=== PATIENT | female | born 1995 | race Caucasian/White ===

== ENCOUNTER 2021-12-18 11:55 | Day surgery (SDC) | payer OTHER ==
[2021-12-18] MEDS ORDERED: hydrALAZINE 20 MG/ML VIAL SLOW IVP PRN (12:40)
[2021-12-18 13:19] LABS: Fetal Membranes Rupture No Membranes Rupture (No Rupture)
[2021-12-18 13:50] VITALS: BMI 24.5
== END 2021-12-18 14:22 | disposition home health service (06) ==
LOC: CSHLD/OP 11:55
PROVIDERS: ATTEND Obstetrics & Gynecology
DX: O99.891 Other specified diseases and conditions complicating pregnancy (principal); N89.8 Other specified noninflammatory disorders of vagina; Z3A.21 21 weeks gestation of pregnancy
CPT/HCPCS: 84112; 87480; 87510; 87660

== ENCOUNTER 2022-04-11 19:52 | Inpatient (IN) | payer OTHER ==
[2022-04-11] MEDS ORDERED: Promethazine HCl 25 MG/ML VIAL IM PRN (20:33)
[2022-04-11] MEDS ORDERED: Butorphanol Tartrate 1 MG/ML VIAL SLOW IVP PRN (20:33)
[2022-04-11] MEDS ORDERED: Ibuprofen 800 MG TAB PO PRN (20:33)
[2022-04-11] MEDS ORDERED: HYDROcodone/Acetaminophen 5/325 mg Tablet PO PRN ×2 (20:33)
[2022-04-11] MEDS ORDERED: Ondansetron PF 4 MG/2 ML Vial IVP PRN (20:33)
[2022-04-11] MEDS ORDERED: Lidocaine 1% (PF) 30 ML VIAL SC PRN (20:33)
[2022-04-11] MEDS ORDERED: hydrALAZINE 20 MG/ML VIAL SLOW IVP PRN (20:33)
[2022-04-11 20:38] VITALS: BMI 27.1
[2022-04-11] MEDS ORDERED: Lactated Ringer's 1,000 ML IV SCH (20:45)
[2022-04-11] MEDS ORDERED: NS w/ Oxytocin 30 units 500 ML IV SCH ×2 (20:45)
[2022-04-11] MEDS ORDERED: Misoprostol 100 MCG TAB VAG SCH (20:45)
[2022-04-11 21:21] LABS: Mean Corpuscular HGB CONC 35.9 g/dL (32.0-36.0); Mean Corpuscular Hemoglobin 31.5 pg (27.0-33.0); Mean Corpuscular Volume 87.7 fl (81.6-98.3); Mean Platelet Volume 10.2 fl (7.4-10.4); Platelet Count 191 10x3/uL (150-450); Red Blood Cell (RBC) Count 3.81 10x6/uL (3.90-5.03); White Blood Cell (WBC) Count 11.8 10x3/uL (3.5-10.5)
[2022-04-11 21:43] LABS: Syphilis Antibody Nonreactive (Nonreactive); Syphilis Antibody Index 0.04 S/CO (<1.00 Non-Reactive)
[2022-04-11 22:28] LABS: SARS-CoV-2 NAA Rapid Test Not Detected (NotDetected)
[2022-04-11 22:35] LABS: Hep B Surf Ag Non-Reactive S/CO (NonReactive)
[2022-04-11 22:38] LABS: HBSAg Index 0.29 S/CO (0-0.99)
[2022-04-12] MEDS: Misoprostol 100 MCG TAB VAG SCH ×3 (00:49→16:00)
[2022-04-12] MEDS ORDERED: Misoprostol 200 MCG TAB ONE (11:05)
[2022-04-12] MEDS ORDERED: Methylergonovine 0.2 MG/ML VIAL ONE (11:05)
[2022-04-12] MEDS ORDERED: Tranexamic Acid 1,000 MG/10 ML VIAL ONE (11:11)
[2022-04-12] MEDS ORDERED: Methylergonovine 0.2 MG/ML VIAL IM SCH (11:30)
[2022-04-12] MEDS ORDERED: Milk Of Magnesia 30 ML UDCUP PO PRN (14:34)
[2022-04-12] MEDS ORDERED: diphenhydrAMINE 25 MG CAP PO PRN (14:34)
[2022-04-12] MEDS ORDERED: Ondansetron PF 4 MG/2 ML Vial IVP PRN (14:34)
[2022-04-12] MEDS ORDERED: hydrALAZINE 20 MG/ML VIAL SLOW IVP PRN (14:34)
[2022-04-12] MEDS ORDERED: Lanolin Ointment 7 GM TUBE TOP PRN (14:34)
[2022-04-12] MEDS ORDERED: HYDROcodone/Acetaminophen 5/325 mg Tablet PO PRN ×2 (14:34)
[2022-04-12] MEDS ORDERED: Bisacodyl 10 MG SUPP PR PRN (14:34)
[2022-04-12] MEDS ORDERED: Benzocaine-Menthol 82.5 ML CAN TOP PRN (14:34)
[2022-04-12] MEDS: Ibuprofen 800 MG TAB PO SCH (17:21)
[2022-04-12] MEDS: Methylergonovine 0.2 MG TAB PO SCH ×2 (17:22→21:52)
[2022-04-12] MEDS: Ferrous Sulfate 325 MG TAB PO SCH (17:23)
[2022-04-12] MEDS: Docusate 100 MG CAP PO SCH (21:52)
[2022-04-13] MEDS: Ibuprofen 800 MG TAB PO SCH ×2 (01:09→08:55)
[2022-04-13] MEDS: Methylergonovine 0.2 MG TAB PO SCH ×2 (05:03→10:00)
[2022-04-13 06:38] LABS: #Eosinphils 0.1 10x3/uL (0.0-0.5); #Monocytes 1.4 10x3/uL (0.0-1.1); #Neutrophils 10.2 10x3/uL (1.5-8.4); %Basophils 0.3 % (0.0-2.0); %Eosinophils 0.9 % (0.0-6.0); %Lymphocytes 15.1 % (18.0-47.0); %Monocytes 9.9 % (0.0-10.0); %Neutrophils 73.1 % (40.0-75.0); Hemoglobin 11.2 g/dL (12.0-15.5); Mean Corpuscular HGB CONC 35.9 g/dL (32.0-36.0); Mean Corpuscular Hemoglobin 31.9 pg (27.0-33.0); Mean Corpuscular Volume 88.9 fl (81.6-98.3); Mean Platelet Volume 10.1 fl (7.4-10.4); Platelet Count 171 10x3/uL (150-450); RBC Distribution Width 13.2 % (11.5-14.5); Red Blood Cell (RBC) Count 3.51 10x6/uL (3.90-5.03)
[2022-04-13] MEDS: Ferrous Sulfate 325 MG TAB PO SCH (08:46)
[2022-04-13] MEDS: Docusate 100 MG CAP PO SCH (08:54)
[2022-04-13] MEDS ORDERED: Prenatal Vitamin 1 TAB PO SCH (09:00)
[2022-04-13 11:25] VITALS: BP 110/65; TEMP 97.7
[2022-04-13] MEDS ORDERED: Boostrix 0.5 ML (Tdap) VIAL IM ONE (14:34)
== END 2022-04-13 16:05 | disposition home or self-care (01) | DRG 807 ==
LOC: CSHLD 19:52 → CSHPP 04-12 15:18
PROVIDERS: ADMIT Obstetrics & Gynecology; ATTEND Obstetrics & Gynecology
PROC: 10E0XZZ Delivery of Products of Conception, External Approach (ICD-10-PCS; principal; 2022-04-12)
PROC: 10907ZC Drainage of Amniotic Fluid, Therapeutic from Products of Conception, Via Natural or Artificial Opening (ICD-10-PCS; 2022-04-12)
DX: O99.62 Diseases of the digestive system complicating childbirth (principal); Z37.0 Single live birth; O99.344 Other mental disorders complicating childbirth; K63.89 Other specified diseases of intestine; F41.9 Anxiety disorder, unspecified; Z14.1 Cystic fibrosis carrier; Z3A.38 38 weeks gestation of pregnancy; Z20.822 Contact with and (suspected) exposure to COVID-19; Z79.899 Other long term (current) drug therapy; O72.2 Delayed and secondary postpartum hemorrhage
CPT/HCPCS: 36415; 85025; 85027; 86780; 86850; 86900; 86901; 87340; J0595; J2210; J2590; U0002

== ENCOUNTER 2023-03-23 08:54 | Emergency (ER) | payer OTHER ==
[2023-03-23] MEDS ORDERED: Ibuprofen 200 MG TAB ONE (09:53)
[2023-03-23] MEDS ORDERED: Sulfameth/Trimethoprim DS 800-160mg TAB ONE (09:53)
== END 2023-03-23 11:27 | disposition home or self-care (01) ==
LOC: CSHERS 08:54
DX: N61.0 Mastitis without abscess (principal); N64.4 Mastodynia